=== PATIENT | male | born 1965 | race American Indian/Alaskan Native ===

== ENCOUNTER 2018-03-06 08:33 | Outpatient (CLI) | payer BC ==
--- NOTE | 2018-03-06 14:03 | Mammography Report ---
BILATERAL DIGITAL DIAGNOSTIC MAMMOGRAM with CAD and BILATERAL BREAST ULTRASOUND: 03/06/18 CLINICAL: 52-year-old male with a right breast lump on recent CT. COMPARISON:None. FINDINGS: The breasts are entirely fatty with minimal subareolar fibroglandular densities. 2 lymph nodes with central fat in the axillary tail of the right breast with the largest measuring 9 mm. Bilateral axillary lymph nodes. 2 large left axillary lymph nodes have abundant central fat. The largest measures at least 2.3 cm. No mass, architectural distortion or suspicious calcifications. Ultrasound of both breasts (including all four quadrants and the retroareolar area) was performed and demonstrated no mass, cyst or shadowing. A lymph node with central fat and benign morphology is located superficial at 10 o'clock 7 cm from the nipple and measures 9 x 6 x 8 mm. It correlates with the larger lymph node on the mammogram. Several smaller right axillary lymph nodes have benign morphology. Several left axillary lymph nodes have central fat and benign morphology. IMPRESSION: No mammographic evidence of malignancy.Benign right intramammary lymph nodes and bilateral benign axillary lymph nodes. The largest right intramammary lymph node appears to correlate with the CT finding. BI-RADS CATEGORY: 2 -- Benign RECOMMENDATION: Clinical follow-up. COMMENT: Patient follow-up letters are generated by our [employer] application.
== END 2018-03-06 08:34 | disposition home or self-care (01) ==
LOC: SPVWC 08:33
PROVIDERS: ATTEND Family Medicine
DX: N63.10 Unspecified lump in the right breast, unspecified quadrant (principal); R92.8 Other abnormal and inconclusive findings on diagnostic imaging of breast
CPT/HCPCS: 77066